=== PATIENT | female | born 1945 | race American Indian/Alaskan Native ===

== ENCOUNTER 2017-07-30 09:21 | Outpatient (CLI) | payer MEDICARE ==
--- NOTE | 2017-07-30 11:49 | Cat Scan Report ---
CTA CHEST INDICATION: Personal history of pulmonary embolism. COMPARISON: None similar at this institution. FINDINGS: Chest CTA performed following intravenous administration of 100 cc of Omnipaque 350. Rotational MIP's also obtained. Normal heart size. No effusion or size significant adenopathy. Patent central airway. No aortic aneurysm or dissection. Slight aortic arch calcifications. No acute focal suspicious pulmonary artery filling defect identified with minimal thin/septation-like filling defect within the right lower lobe pulmonary artery centrally as on axial series 2, images 63-66, best seen on bone windows, presumably residua of chronic PE in light of the provided history. Heterogeneous thyroid with numerous bilateral hypodense nodules and asymmetric right thyroid lobe enlargement with substernal extension. Right thyroid lobe estimated at 3.7 x 3 cm, axial image 19, series 2 and approximately 6.3 cm craniocaudal. Slight leftward tracheal deviation/effacement also noted. Mild bilateral lower lobe scarring/atelectasis and slight bronchiectasis. Slight right middle lobe scarring as well. Slight nonspecific distal esophageal prominence or thickening. Right hemidiaphragm approximately 2 cm higher than the left. Imaged upper abdomen demonstrates cholecystectomy clips, slight pneumobilia on the left and mild diverticulosis about the splenic flexure. Multilevel thoracic and imaged lower cervical spine degenerative changes as spurring and disc degeneration. Bony demineralization. Slight thoracic kyphosis. An IVC filter also noted on the realty specialist view. CONCLUSION: No acute chest CT abnormality or evidence of acute significant pulmonary embolism with various other findings as bibasilar scarring, cholecystectomy, diverticulosis, IVC filter as also heterogeneously enlarged thyroid gland, right more than left with substernal extension, as described above. Please also correlate clinically and directly compare with similar prior imaging, if available. Thank you for the opportunity to participate in this patient's care.
== END 2017-07-30 09:22 | disposition home or self-care (01) ==
LOC: CT 09:21
PROVIDERS: ATTEND Internal Medicine Cardiovascular Disease
DX: M47.892 Other spondylosis, cervical region (principal); M50.30 Other cervical disc degeneration, unspecified cervical region; M40.292 Other kyphosis, cervical region; J47.9 Bronchiectasis, uncomplicated; J98.4 Other disorders of lung; K57.30 Diverticulosis of large intestine without perforation or abscess without bleeding; Z86.711 Personal history of pulmonary embolism; Z90.49 Acquired absence of other specified parts of digestive tract
CPT/HCPCS: 36415; 71275; 82565; Q9967

== ENCOUNTER 2020-03-12 08:54 | Outpatient (CLI) | payer MEDICARE ==
[2020-03-12] MEDS ORDERED: REGADENOSON 0.4 MG/5 ML INJ IV ONE ×2 (11:33→11:40)
[2020-03-12 12:19] VITALS: BP 138/67
--- NOTE | 2020-03-12 19:14 | Treadmill Report ---
CARDIAC NUCLEAR PERFUSION STUDY REASON FOR STUDY: Chest pain. ORDERING PHYSICIAN: Marc Johnston MD IMAGING PROTOCOL: The patient received 10 mCi of Technetium 99m Tetrofosmin for resting image and 28 mCi of Technetium 99m Tetrofosmin for stress imaging. The imaging for the whole procedure was completed 30-90 minutes following the initial injection of Technetium 99m Tetrofosmin. The SPECT imaging in the 180 degree arc was performed in the right anterior oblique projection. Computerized reconstruction of the images was performed for analysis. IMAGING RESULTS: Normal cavity size from stress to rest. Normal distribution of radionuclide in the anterior, inferior, septal, and apical regions. Gated SPECT, EF 75% with no wall motion abnormalities. The patient infused Lexiscan with no EKG changes. SUMMARY: 1. Negative Lexiscan EKG. 2. Normal rest and stress myocardial perfusion scan. No significant ischemia. No wall motion abnormalities. Gated SPECT, EF 75%. JOB# [id number] MUSTAPHA/LORETO
== END 2020-03-12 08:55 | disposition home or self-care (01) ==
LOC: CARD 08:54 → CATHLABREC 08:54 → CARD 08:55
DX: R07.9 Chest pain, unspecified (principal); E11.9 Type 2 diabetes mellitus without complications; I10 Essential (primary) hypertension
CPT/HCPCS: 78452; 93017; A9502; J2785